=== PATIENT | male | born 1995 | race Caucasian/White ===

== ENCOUNTER 2020-02-29 17:15 | Emergency (ER) | payer OTHER ==
[~2020-02-29] VITALS: Ht 175.3 cm; Wt 65.8 kg
== END 2020-02-29 19:51 | disposition home or self-care (01) ==
LOC: ER 17:15
DX: S76.111A Strain of right quadriceps muscle, fascia and tendon, initial encounter (principal); X50.3XXA Overexertion from repetitive movements, initial encounter; Y93.41 Activity, dancing; Y92.89 Other specified places as the place of occurrence of the external cause; Y99.8 Other external cause status

== ENCOUNTER → 2023-01-14 | Outpatient (CLI) | payer OTHER | END | disposition home or self-care (01) | LOC: RAD 12:03 | PROVIDERS: ATTEND Orthopaedic Surgery | DX: M25.561 Pain in right knee (principal) ==